=== PATIENT | female | born 1985 | race Caucasian/White ===

== ENCOUNTER 2017-11-21 10:12 | Emergency (ER) | payer SELFPAY ==
[~2017-11-21] VITALS: Ht 165.1 cm; Wt 70.3 kg
[~2017-11-21 10:12] MED LIST: METF500T; PROG100C15 PO
--- NOTE | 2017-11-21 11:00 | NUR ---
PT AMBULATORY TO ER BED 10. C/O SUBSTERNAL CP W/ NAUSEA AND VOMITING. DENIES COUGH AND CONGESTION. GOWNED AND PLACED ON MONITOR. AWAITING MD HERNANDEZ.
--- NOTE | 2017-11-21 11:20 | NUR ---
ODALIS COOK RESTAURANT AT BEDSIDE FOR EVAL.
[2017-11-21] MEDS ORDERED: MORPHINE SULFATE INJ 2 MG/ML DISP.SYRIN IV ONE ×2 (11:30→13:00)
[2017-11-21] MEDS ORDERED: NITROGLYCERIN 0.4 MG/TAB BOTTLE SL ONE (11:30)
[2017-11-21] MEDS ORDERED: IV NS 0.9% 1,000 ML BAG IV ONE (11:30)
[2017-11-21] MEDS ORDERED: ONDANSETRON HCL/PF 4 MG/2 ML VIAL IVP ONE (11:30)
--- NOTE | 2017-11-21 11:35 | NUR ---
IV LINE STARTED BLOOD DRAWN AND SENT TO LAB.
[2017-11-21 11:39] LABS: BASOPHILS # (AUTO) 0.1 /CMM (0.0-0.2); BASOPHILS % (AUTO) 0.5 % (0.0-2.0); EOSINOPHILS % (AUTO) 0.2 % (0.0-6.0); HEMATOCRIT 45 % (33-45); HEMOGLOBIN 15.9 g/dL (11.5-14.8); LYMPHOCYTES # (AUTO) 1.1 /CMM (0.8-4.8); LYMPHOCYTES % (AUTO) 9.1 % (20.0-44.0); MEAN CORPUSCULAR HEMOGLOBIN 32 PG (26.0-33.0); MEAN CORPUSCULAR HGB CONC 35 g/dl (31.0-36.0); MEAN CORPUSCULAR VOLUME 91 fL (82-100); MONOCYTES # (AUTO) 0.5 /CMM (0.1-1.30); MONOCYTES % (AUTO) 3.7 % (2.0-12.0); NEUTROPHILS # (AUTO) 10.9 /CMM (1.8-8.9); NEUTROPHILS % (AUTO) 86.5 % (43.0-81.0); PLATELET COUNT (AUTO) 240 /CMM (150-450); WHITE BLOOD COUNT (AUTO) 12.6 K/uL (4.3-11.0)
[2017-11-21] MEDS ORDERED: ASPIRIN 325 MG TABLET ONE (11:45)
[2017-11-21] MEDS ORDERED: MORPHINE SULFATE INJ 4 MG/ML DISP.SYRIN ONE ×2 (11:45→12:50)
[2017-11-21] MEDS ORDERED: ONDANSETRON HCL/PF 4 MG/2 ML VIAL ONE ×2 (11:45→14:59)
[2017-11-21] MEDS ORDERED: NITROGLYCERIN 0.4 MG/TAB BOTTLE ONE (11:45)
[2017-11-21] MEDS: ASPIRIN 325 MG TABLET PO ONE ×2 (11:51→12:53)
[2017-11-21 11:52] LABS: CALCIUM, SERUM 9.3 mg/dL (8.5-10.1); CARBON DIOXIDE 23 mmol/L (21-32); CHLORIDE 104 mmol/L (98-107); CREATININE 0.9 mg/dL (0.6-1.3); GLUCOSE 150 mg/dL (74-106); POTASSIUM 4.5 mmol/L (3.5-5.1); SODIUM SERUM 138 mmol/L (136-145); UREA NITROGEN, BLOOD 15 mg/dL (7-18)
[2017-11-21 11:56] LABS: INR 0.95 (0.87-1.13); PROTHROMBIN TIME 9.9 SECS (9.5-12.7)
[2017-11-21 12:02] LABS: TROPONIN I < 0.017 ng/mL (0.00-0.056)
[2017-11-21] MEDS ORDERED: METOCLOPRAMIDE HCL 10 MG/2 ML VIAL ONE (12:26)
--- NOTE | 2017-11-21 12:31 | NUR ---
PT IS STILL NAUSEATED. UNABLE TO TAKE THE ASPIRIN. SREEII CERTIFIED TEACHER ASSISTANT AWARE. REGLAN 10MG IV GIVEN PER ORDERED.
[2017-11-21] MEDS ORDERED: METOCLOPRAMIDE HCL 10 MG/2 ML VIAL IV ONE (13:00)
[2017-11-21] MEDS ORDERED: ONDANSETRON HCL/PF 4 MG/2 ML VIAL IV ONE (15:00)
[2017-11-21 15:04] VITALS: BP 127/94
--- NOTE | 2017-11-21 15:04 | NUR ---
IV removed. Catheter intact and site benign. Pressure and 4x4 applied to site. No bleeding noted.
--- NOTE | 2017-11-21 15:05 | NUR ---
Patient discharged to home in stable condition. Written and verbal after care instructions given. Patient verbalizes understanding of instruction.
== END 2017-11-21 15:12 | disposition home or self-care (01) ==
LOC: ER 10:13
DX: R11.2 Nausea with vomiting, unspecified (principal); R07.89 Other chest pain; R10.9 Unspecified abdominal pain; R06.02 Shortness of breath; E11.9 Type 2 diabetes mellitus without complications; Z79.84 Long term (current) use of oral hypoglycemic drugs
CPT/HCPCS: 36415; 71045; 76705; 80048; 83690; 84484; 85025; 85730; 93005; 96374; 96375; 96376; 99285; A4606; J2270 ×2; J2405 ×2; J2765; Z7610

== ENCOUNTER 2017-11-21 22:33 | Emergency (ER) | payer OTHER ==
[~2017-11-21] VITALS: Ht 162.6 cm; Wt 64.9 kg
[2017-11-21 22:50] VITALS: BP 146/87
--- NOTE | 2017-11-22 00:09 | NUR ---
INFORMED BY SECURITY "PT LEFT"
== END 2017-11-22 00:11 | disposition left against medical advice (07) ==
LOC: ER 22:37
DX: Z53.21 Procedure and treatment not carried out due to patient leaving prior to being seen by health care provider (principal)
CPT/HCPCS: A4606; Z7610

== ENCOUNTER 2018-08-28 07:35 | Emergency (ER) | payer OTHER ==
[~2018-08-28] VITALS: Ht 162.6 cm; Wt 67.1 kg
[2018-08-28] MEDS ORDERED: MORPHINE SULFATE INJ 2 MG/ML DISP.SYRIN ONE (07:49)
[2018-08-28] MEDS ORDERED: ONDANSETRON HCL/PF 4 MG/2 ML VIAL ONE ×3 (07:49→15:07)
[2018-08-28] MEDS ORDERED: ONDANSETRON HCL/PF 4 MG/2 ML VIAL IVP ONE (08:00)
[2018-08-28] MEDS ORDERED: IV NS 0.9% 1,000 ML BAG IV ONE ×2 (08:00→09:30)
[2018-08-28] MEDS ORDERED: MORPHINE SULFATE INJ 2 MG/ML DISP.SYRIN IV ONE ×2 (08:00→11:00)
[2018-08-28 08:02] LABS: EOSINOPHILS % (AUTO) 0.3 % (0.0-6.0); HEMATOCRIT 46 % (33-45); HEMOGLOBIN 15.6 g/dL (11.5-14.8); LYMPHOCYTES # (AUTO) 0.6 /CMM (0.8-4.8); MEAN CORPUSCULAR HGB CONC 34 g/dl (31.0-36.0); MEAN CORPUSCULAR VOLUME 94 fL (82-100); MONOCYTES # (AUTO) 0.3 /CMM (0.1-1.30); NEUTROPHILS # (AUTO) 11.6 /CMM (1.8-8.9); NEUTROPHILS % (AUTO) 92.7 % (43.0-81.0); PLATELET COUNT (AUTO) 245 /CMM (150-450); RDW COEFFICIENT OF VARIATION 12.9 (11.5-15.0); RED BLOOD CELL COUNT(AUTO) 4.93 MIL/uL (4.0-5.2); WHITE BLOOD COUNT (AUTO) 12.6 K/uL (4.3-11.0)
--- NOTE | 2018-08-28 08:02 | NUR ---
33 Y/O FEMALE PLACED IN BED 10 C/O ABDOMINAL PAIN WITH NAUSEA AND VOMITING. PT SEEN BY MD. H/L 20 G PLACED LEFT A/C. BLOOD OBTAINED AND SENT. MORPHINE 2MG AND ZOFRAN 4MG IV GIVEN. IVF OF N/S RUNNING. CONTINUE TO MONITOR
--- NOTE | 2018-08-28 08:11 | NUR ---
PAIN RESOLVED. BP NOW 124/73
[2018-08-28 08:20] LABS: ALBUMIN 4.2 g/dL (3.4-5.0); BILIRUBIN,DIRECT 0.1 mg/dL (0.0-0.2); BILIRUBIN,TOTAL 0.6 mg/dL (0.2-1.0); CALCIUM, SERUM 9.9 mg/dL (8.5-10.1); POTASSIUM 4.4 mmol/L (3.5-5.1); TOTAL PROTEIN, SERUM 8.4 g/dL (6.4-8.2)
[2018-08-28] MEDS ORDERED: LORAZEPAM INJ 2 MG/ML VIAL ONE ×2 (08:29→15:09)
[2018-08-28] MEDS ORDERED: ONDANSETRON HCL/PF - ER 4 MG/2 ML VIAL IV ONE (08:30)
[2018-08-28] MEDS ORDERED: LORAZEPAM INJ 2 MG/ML VIAL IV ONE ×2 (08:30→15:00)
--- NOTE | 2018-08-28 08:34 | NUR ---
PT C/O ABDOMINAL PAIN AGAIN WITH N/V/D. VERY LITTLE DIARRHEA. PT CLEANED AND MEDICATED WITH ATIVAN AND ZOFRAN.
[2018-08-28] MEDS ORDERED: diphenhydrAMINE HCL 50 MG/ML VIAL IV ONE (09:30)
[2018-08-28] MEDS ORDERED: ATROPINE SULFATE INJ 0.4 MG/ML VIAL IV ONE (09:30)
[2018-08-28] MEDS ORDERED: ATROPINE SULFATE INJ 1 MG/ML VIAL ONE (09:42)
[2018-08-28] MEDS ORDERED: diphenhydrAMINE HCL 50 MG/ML VIAL ONE (09:43)
--- NOTE | 2018-08-28 10:02 | NUR ---
PT C/O DIARRHEA. PT CLEANED. IVF - N/S - WITH ATROPINE AND BENADRYL - RUNNING
[2018-08-28] MEDS ORDERED: CIPROFLOXACIN IV RTU 400 MG in PREMIX 1 EA IV STA (10:35)
[2018-08-28] MEDS ORDERED: MORPHINE SULFATE INJ 4 MG/ML DISP.SYRIN ONE (10:42)
[2018-08-28] MEDS ORDERED: METOCLOPRAMIDE HCL 10 MG/2 ML VIAL ONE (10:43)
[2018-08-28] MEDS ORDERED: CIPROFLOXACIN IV RTU 200 ML IV ONE (10:44)
--- NOTE | 2018-08-28 10:56 | NUR ---
PT HAVING DIARRHEA AGAIN. PT CLEANED AGAIN. MORPHINE AND REGLAN GIVEN IV. CIPRO RUNNING IV. PT TO BE ADMITTED.
[2018-08-28] MEDS ORDERED: METOCLOPRAMIDE HCL 10 MG/2 ML VIAL IV ONE (11:00)
--- NOTE | 2018-08-28 11:43 | NUR ---
REPORT GIVEN TO [facility]. PT TO BE TRANSFERRED TO [facility] TO DR. MEI'S SERVICE.
--- NOTE | 2018-08-28 12:21 | NUR ---
CALLED YANETH AT [facility], SHE WILL GIVE US A CALL ONCE WE HAVE BED PLACEMENT.
--- NOTE | 2018-08-28 13:29 | NUR ---
YANETH CALLED FROM [facility] ROOM 319-2 NURSE [facility] ETA 1500
--- NOTE | 2018-08-28 13:51 | NUR ---
PT CLEANED AGAIN. PT C/O PAIN AND NAUSEA AGAIN.
[2018-08-28] MEDS ORDERED: ONDANSETRON HCL/PF 4 MG/2 ML VIAL IV ONE (15:00)
--- NOTE | 2018-08-28 15:14 | NUR ---
PT C/O NAUSEA AND DIARRHEA. PT MEDICATED FOR SAME.
[2018-08-28 16:27] VITALS: BP 133/86
--- NOTE | 2018-08-28 16:36 | NUR ---
ETA FOR AMBULANCE IV RN IS 20 MINUTES. CALLING REPORT TO [facility] FOR PT. [facility] NURSE SAYS ROOM NOT READY YET.
--- NOTE | 2018-08-28 16:43 | NUR ---
REPORT GIVEN TO JASVIR. WAITING FOR AMBULACE ARRIVAL
--- NOTE | 2018-08-28 17:15 | NUR ---
AMBULANCE ARRIVES AND PT TRANSFERRED TO [facility].
== END 2018-08-28 17:19 ==
LOC: ER 07:36
DX: R11.2 Nausea with vomiting, unspecified (principal); R19.7 Diarrhea, unspecified; D72.829 Elevated white blood cell count, unspecified; R10.9 Unspecified abdominal pain; E11.9 Type 2 diabetes mellitus without complications
CPT/HCPCS: 36415; 80048; 80076; 83690; 84702; 85025; 96361; 96374; 96375; 96376; 99285; A4216; J0461 ×2; J0744 ×2; J1200; J2060 ×2; J2270 ×2; J2405 ×4; J2765; J7030; A4606; Z7610

== ENCOUNTER 2020-08-12 12:26 | Emergency (ER) | payer OTHER ==
[~2020-08-12] VITALS: Ht 162.6 cm; Wt 84.4 kg
[2020-08-12 13:04] VITALS: BP 115/54
--- NOTE | 2020-08-12 13:20 | NUR ---
SUTURE KIT SET UP.
[2020-08-12] MEDS ORDERED: LIDOCAINE HCL/MPF 1% 30 ML VIAL IJ ONE (13:26)
[2020-08-12] MEDS ORDERED: HYDROCODONE/APAP 5/325MG TABLET ONE (13:53)
[2020-08-12] MEDS ORDERED: TDAP [DIPH/PERTUSSIS/TET] 0.5 ML VIAL IM ONE (13:54)
[2020-08-12] MEDS: HYDROCODONE/APAP 5/325MG TABLET PO ONE (13:56)
[2020-08-12] MEDS: TDAP [DIPH/PERTUSSIS/TET] 0.5 ML VIAL IM ONE (13:57)
== END 2020-08-12 14:14 | disposition home or self-care (01) ==
LOC: ER 12:30
DX: S61.213A Laceration without foreign body of left middle finger without damage to nail, initial encounter (principal); E11.9 Type 2 diabetes mellitus without complications; Z79.84 Long term (current) use of oral hypoglycemic drugs; Z79.899 Other long term (current) drug therapy; W26.0XXA Contact with knife, initial encounter; Y93.E8 Activity, other personal hygiene; Y92.89 Other specified places as the place of occurrence of the external cause; Y99.8 Other external cause status
CPT/HCPCS: 12002; 99283; A6403; J3490; 90715

== ENCOUNTER 2022-04-18 20:24 | Emergency (ER) | payer OTHER ==
[~2022-04-18] VITALS: Ht 162.6 cm; Wt 86.2 kg
--- NOTE | 2022-04-18 20:55 | NUR ---
[id number] C/O R FLANK PAIN SINCE THE AM. PLACED PATIENT COMFORTABLY IN BED. VITALS CHECKED.
[2022-04-18] MEDS ORDERED: KETOROLAC TROMETHAMINE INJ 30 MG/ML VIAL IV ONE ×2 (21:00→23:00)
[2022-04-18] MEDS ORDERED: IV NS 0.9% 1,000 ML BAG IV ONE (21:00)
[2022-04-18] MEDS ORDERED: ONDANSETRON HCL/PF 4 MG/2 ML VIAL IVP ONE (21:00)
[2022-04-18] MEDS ORDERED: MORPHINE SULFATE INJ 2 MG/ML DISP.SYRIN IV ONE (21:00)
--- NOTE | 2022-04-18 21:00 | NUR ---
IV CANNULA G20 INSERTED ON RIGHT AC. BLOOD DRAWN AND SENT TO LAB
[2022-04-18] MEDS ORDERED: KETOROLAC TROMETHAMINE INJ 30 MG/ML VIAL ONE (21:10)
[2022-04-18] MEDS ORDERED: MORPHINE SULFATE INJ 4 MG/ML DISP.SYRIN ONE (21:10)
[2022-04-18] MEDS ORDERED: ONDANSETRON HCL/PF 4 MG/2 ML VIAL ONE (21:10)
--- NOTE | 2022-04-18 21:20 | NUR ---
URINE SPECIMEN SENT TO LAB
[2022-04-18 21:22] LABS: BASOPHILS % (AUTO) 0.3 % (0.0-2.0); EOSINOPHILS % (AUTO) 1.2 % (0.0-6.0); HEMATOCRIT 41 % (33-45); HEMOGLOBIN 13.8 g/dL (11.5-14.8); LYMPHOCYTES # (AUTO) 1.8 K/uL (0.8-4.8); MEAN CORPUSCULAR HGB CONC 34 g/dl (31.0-36.0); MEAN CORPUSCULAR VOLUME 90 fL (82-100); MONOCYTES # (AUTO) 0.4 K/uL (0.1-1.30); MONOCYTES % (AUTO) 5.7 % (2.0-12.0); NEUTROPHILS # (AUTO) 4.2 K/uL (1.8-8.9); NEUTROPHILS % (AUTO) 64.8 % (43.0-81.0); PLATELET COUNT (AUTO) 257 K/uL (150-450); RED BLOOD CELL COUNT(AUTO) 4.56 MIL/uL (4.0-5.2); WHITE BLOOD COUNT (AUTO) 6.4 K/uL (4.3-11.0)
[2022-04-18 21:46] LABS: BILIRUBIN,TOTAL 0.2 mg/dL (0.2-1.0); CALCIUM, SERUM 9.3 mg/dL (8.5-10.1); CREATININE 0.7 mg/dL (0.6-1.3); TOTAL PROTEIN, SERUM 7.5 g/dL (6.4-8.2)
--- NOTE | 2022-04-18 22:40 | NUR ---
PATIENT STILL COMPLAINING OF FLANK PAIN. 06/26. [employer] SECURITY CONSULTANT CATH MADE AWARE
[2022-04-18 22:41] LABS: ALBUMIN 3.7 g/dL (3.4-5.0)
[2022-04-18 22:51] LABS: BILIRUBIN,URINE NEGATIVE (NEGATIVE); COLOR,URINE YELLOW (YELLOW); LEUKOCYTE ESTERASE ,URINE SMALL (NEGATIVE); NITRITE, URINE NEGATIVE (NEGATIVE); PH,URINE 6.5 (5.0-8.0); PROTEIN,URINE NEGATIVE (NEGATIVE); UGLUCOSE NEGATIVE (NEGATIVE); UROBILINOGEN,URINE 0.2 EU/dL (0.2)
[2022-04-18] MEDS ORDERED: HYDROMORPHONE 1 MG/1 ML DISP.SYRIN IV ONE (23:00)
[2022-04-18] MEDS ORDERED: KETOROLAC TROMETHAMINE 15 MG/ML VIAL ONE (23:14)
[2022-04-18] MEDS ORDERED: HYDROMORPHONE 1 MG/1 ML DISP.SYRIN ONE (23:15)
[2022-04-19] MEDS ORDERED: HYDR-4209 PO (00:11)
[2022-04-19] MEDS ORDERED: IBUP-1955 PO (00:11)
--- NOTE | 2022-04-19 00:22 | NUR ---
Patient discharged to home in stable condition. Written and verbal after care instructions given. Patient verbalizes understanding of instruction. IV removed. Catheter intact and site benign. Pressure and 4x4 applied to site. No bleeding noted. PT ambulatory with a steady gait
[2022-04-19 00:26] VITALS: BP 138/85
[2022-04-19 06:58] LABS: BACTERIA,URINE Moderate /HPF (None Seen); SQUAMOUS EPITHELIAL CELL,UR Few /HPF (None Seen)
[2022-04-19] MEDS ORDERED: HYDR-4275 PO (10:45)
== END 2022-04-19 00:26 | disposition home or self-care (01) ==
LOC: ER 20:31
DX: N20.0 Calculus of kidney (principal); K44.9 Diaphragmatic hernia without obstruction or gangrene; K57.30 Diverticulosis of large intestine without perforation or abscess without bleeding; K76.0 Fatty (change of) liver, not elsewhere classified; Z60.2 Problems related to living alone; Z79.899 Other long term (current) drug therapy
CPT/HCPCS: 36415; 74176; 80048; 80076; 81001; 83690; 84703; 85025; 87077; 87086; 87186; 96361; 96374; 96375; 96376; 99284; J1170; J1885 ×2; J2270; J2405; J7030

== ENCOUNTER 2022-05-11 19:09 | Emergency (ER) | payer OTHER ==
[~2022-05-11] VITALS: Ht 162.6 cm; Wt 98.4 kg
[~2022-05-11 19:09] MED LIST changes: +HYDR-4209 PO; +HYDR-4275 PO; +IBUP-1955 PO
[2022-05-11] MEDS ORDERED: VANCOMYCIN 1 GM in IV D5W 250 ML IV ONE (19:30)
[2022-05-11] MEDS ORDERED: PIPERACILLIN /TAZOBACTAM 3.375 G in IV D5W 50 ML IV ONE (19:30)
[2022-05-11] MEDS ORDERED: ACETAMINOPHEN 325 MG TABLET PO ONE (19:30)
[2022-05-11] MEDS ORDERED: PIPERACILLIN /TAZOBACTAM 3.375 G VIAL IV ONE (19:59)
[2022-05-11] MEDS ORDERED: VANCOMYCIN 1 GM VIAL ONE (19:59)
[2022-05-11] MEDS ORDERED: ONDANSETRON HCL/PF 4 MG/2 ML VIAL ONE (19:59)
[2022-05-11] MEDS ORDERED: ONDANSETRON HCL/PF 4 MG/2 ML VIAL IV ONE (20:00)
[2022-05-11] MEDS ORDERED: ACETAMINOPHEN ES 500 MG TABLET ONE (20:00)
[2022-05-11 20:13] LABS: BASOPHILS % (AUTO) 0.2 % (0.0-2.0); EOSINOPHILS % (AUTO) 1.2 % (0.0-6.0); HEMATOCRIT 37 % (33-45); HEMOGLOBIN 12.4 g/dL (11.5-14.8); LYMPHOCYTES # (AUTO) 0.6 K/uL (0.8-4.8); LYMPHOCYTES % (AUTO) 11.4 % (20.0-44.0); MEAN CORPUSCULAR HGB CONC 34 g/dl (31.0-36.0); MEAN CORPUSCULAR VOLUME 89 fL (82-100); MONOCYTES # (AUTO) 0.4 K/uL (0.1-1.30); NEUTROPHILS # (AUTO) 4.4 K/uL (1.8-8.9); NEUTROPHILS % (AUTO) 79.2 % (43.0-81.0); PLATELET COUNT (AUTO) 219 K/uL (150-450); RED BLOOD CELL COUNT(AUTO) 4.09 MIL/uL (4.0-5.2); WHITE BLOOD COUNT (AUTO) 5.5 K/uL (4.3-11.0)
[2022-05-11] MEDS ORDERED: MORPHINE SULFATE INJ 4 MG/ML DISP.SYRIN ONE (20:27)
[2022-05-11] MEDS ORDERED: CT SWABBABLE VALVE TRANS SET 1 EA INFUS.SET MC ONE (20:30)
[2022-05-11] MEDS ORDERED: MORPHINE SULFATE INJ 2 MG/ML DISP.SYRIN IV ONE (20:30)
[2022-05-11] MEDS ORDERED: IOHEXOL-300 100 ML VIAL IV ONE (20:30)
[2022-05-11] MEDS ORDERED: IV NS 0.9% 250 ML IV ONE (20:31)
[2022-05-11 20:44] LABS: ALANINE AMINOTRANSFERASE 135 U/L (12-78); ALBUMIN 3.5 g/dL (3.4-5.0); ALKALINE PHOSPHATASE 89 U/L (46-116); ASPARTATE AMINOTRANSFERASE 65 U/L (15-37); BILIRUBIN,TOTAL 0.3 mg/dL (0.2-1.0); CALCIUM, SERUM 8.4 mg/dL (8.5-10.1); CARBON DIOXIDE 26 mmol/L (21-32); CHLORIDE 101 mmol/L (98-107); CREATININE 0.8 mg/dL (0.6-1.3); GLUCOSE 99 mg/dL (74-106); SODIUM SERUM 134 mmol/L (136-145); TOTAL PROTEIN, SERUM 7.3 g/dL (6.4-8.2); UREA NITROGEN, BLOOD 9 mg/dL (7-18)
[2022-05-11 22:30] LABS: BILIRUBIN,URINE NEGATIVE (NEGATIVE); COLOR,URINE YELLOW (YELLOW); LEUKOCYTE ESTERASE ,URINE NEGATIVE (NEGATIVE); NITRITE, URINE NEGATIVE (NEGATIVE); PH,URINE 5.5 (5.0-8.0); PROTEIN,URINE NEGATIVE (NEGATIVE); UGLUCOSE NEGATIVE (NEGATIVE); UROBILINOGEN,URINE 0.2 EU/dL (0.2)
[2022-05-11] MEDS ORDERED: HYDROMORPHONE 1 MG/1 ML DISP.SYRIN ONE (22:41)
[2022-05-11] MEDS ORDERED: HYDROMORPHONE 1 MG/1 ML DISP.SYRIN IV ONE (23:00)
[2022-05-12 00:59] VITALS: BP 117/67
== END 2022-05-12 01:00 | disposition left against medical advice (07) ==
LOC: ER 19:10
DX: R50.82 Postprocedural fever (principal); E11.9 Type 2 diabetes mellitus without complications; Z79.84 Long term (current) use of oral hypoglycemic drugs; R00.0 Tachycardia, unspecified; Z20.822 Contact with and (suspected) exposure to COVID-19
CPT/HCPCS: 36415; 70450; 70487; 71045; 80048; 80076; 81003; 83605; 84145; 84484; 84702; 85025; 85730; 87040 ×2; 87081; 87086; 87426; 93005; 96365; 96367; 96375; 99285; C9803; J1170; J2270; J2405; J2543; J3370; J7050; J7060; Q9967

== ENCOUNTER 2023-09-16 09:32 | Emergency (ER) | payer OTHER ==
[~2023-09-16] VITALS: Ht 162.6 cm; Wt 73.5 kg
[2023-09-16] MEDS ORDERED: ONDANSETRON HCL/PF 4 MG/2 ML VIAL IVP ONE (10:00)
[2023-09-16] MEDS ORDERED: IV NS 0.9% 1,000 ML BAG IV ONE (10:00)
[2023-09-16] MEDS ORDERED: ACETAMINOPHEN ES 500 MG TABLET PO ONE (10:00)
[2023-09-16] MEDS ORDERED: ONDANSETRON HCL/PF 4 MG/2 ML VIAL ONE ×3 (10:09→13:10)
[2023-09-16] MEDS ORDERED: ACETAMINOPHEN ES 500 MG TABLET ONE (10:09)
[2023-09-16] MEDS ORDERED: MORPHINE SULFATE INJ 2 MG/ML DISP.SYRIN IV ONE (10:30)
[2023-09-16] MEDS ORDERED: MORPHINE SULFATE INJ 4 MG/ML DISP.SYRIN ONE (10:30)
[2023-09-16 10:39] LABS: BASOPHILS % (AUTO) 0.3 % (0.0-2.0); CALCIUM, SERUM 8.9 mg/dL (8.5-10.1); CREATININE 0.7 mg/dL (0.6-1.3); EOSINOPHILS % (AUTO) 0.1 % (0.0-6.0); HEMATOCRIT 46 % (33-45); LYMPHOCYTES # (AUTO) 1.2 K/uL (0.8-4.8); LYMPHOCYTES % (AUTO) 11.6 % (20.0-44.0); MEAN CORPUSCULAR HEMOGLOBIN 31 PG (26.0-33.0); MEAN CORPUSCULAR HGB CONC 35 g/dl (31.0-36.0); MEAN CORPUSCULAR VOLUME 89 fL (82-100); MONOCYTES # (AUTO) 0.7 K/uL (0.1-1.30); MONOCYTES % (AUTO) 6.8 % (2.0-12.0); NEUTROPHILS # (AUTO) 8.1 K/uL (1.8-8.9); NEUTROPHILS % (AUTO) 81.2 % (43.0-81.0); PLATELET COUNT (AUTO) 258 K/uL (150-450); POTASSIUM 3.1 mmol/L (3.5-5.1); RED BLOOD CELL COUNT(AUTO) 5.16 MIL/uL (4.0-5.2); RED CELL DISTRIBUTION WIDTH 12.3 % (11.5-15.0)
[2023-09-16 10:42] LABS: ALBUMIN 4.1 g/dL (3.4-5.0); BILIRUBIN,DIRECT 0.2 mg/dL (0.0-0.2); BILIRUBIN,TOTAL 0.7 mg/dL (0.2-1.0); TOTAL PROTEIN, SERUM 8.1 g/dL (6.4-8.2)
[2023-09-16 10:49] LABS: APPEARANCE,URINE CLOUDY (CLEAR); BILIRUBIN,URINE NEGATIVE (NEGATIVE); BLOOD, URINE 3+ Ery/uL (NEGATIVE); COLOR,URINE YELLOW (YELLOW); KETONES,URINE TRACE mg/dL (NEGATIVE); LEUKOCYTE ESTERASE ,URINE TRACE (NEGATIVE); NITRITE, URINE NEGATIVE (NEGATIVE); PROTEIN,URINE 2+ mg/dl (NEGATIVE); UGLUCOSE NEGATIVE (NEGATIVE); UROBILINOGEN,URINE 0.2 EU/dL (0.2)
[2023-09-16 10:52] LABS: PREGNANCY TEST URINE QUAL NEGATIVE (NEGATIVE)
[2023-09-16 11:00] LABS: ADD URINE CULTURE YES; BACTERIA,URINE Many /HPF (None Seen); MUCUS,URINE Moderate /LPF (None Seen); RBC,URINE 21-50 /HPF (0-2); SQUAMOUS EPITHELIAL CELL,UR Many /HPF (None Seen)
[2023-09-16] MEDS ORDERED: ONDANSETRON HCL/PF - ER 4 MG/2 ML VIAL IV ONE ×2 (12:00→13:00)
[2023-09-16] MEDS ORDERED: POTASSIUM CHLORIDE 20 MEQ TAB.PRT.SR PO ONE ×2 (12:30→12:34)
[2023-09-16] MEDS ORDERED: NITR100C6 PO ×2 (12:49→12:50)
[2023-09-16] MEDS ORDERED: ONDA4TAB11 PO ×2 (12:49→12:50)
[2023-09-16] MEDS ORDERED: KETOROLAC TROMETHAMINE INJ 30 MG/ML VIAL IV ONE (13:00)
[2023-09-16] MEDS ORDERED: MAG HYDROX/AL HYDROX/SIMETH 30 ML UDC PO ONE (13:00)
[2023-09-16] MEDS ORDERED: KETOROLAC TROMETHAMINE 15 MG/ML VIAL ONE (13:10)
[2023-09-16] MEDS ORDERED: MAG HYDROX/AL HYDROX/SIMETH 30 ML UDC ONE (13:10)
[2023-09-16 13:37] VITALS: BP 125/80; TEMP 98; O2SAT 98
== END 2023-09-16 13:36 | disposition home or self-care (01) ==
LOC: ER 09:35
DX: N39.0 Urinary tract infection, site not specified (principal); R11.2 Nausea with vomiting, unspecified; E11.9 Type 2 diabetes mellitus without complications; Z79.899 Other long term (current) drug therapy; Z20.822 Contact with and (suspected) exposure to COVID-19; Z60.2 Problems related to living alone
CPT/HCPCS: 99284; 96374; 71045; 96375; 96361; 87426; 87804 ×2; 96376; 85025; 80048; 87086; 83690; 80076; 84703; 81001; 36415; J2270; J2405 ×5; J1885; C9803

== ENCOUNTER 2023-10-04 07:22 | Inpatient (IN) | payer OTHER ==
[~2023-10-04] VITALS: Ht 162.6 cm; Wt 80.7 kg
[~2023-10-04 07:22] MED LIST changes: +NITR100C6 PO; +ONDA4TAB11 PO
[2023-10-04] MEDS ORDERED: ONDANSETRON HCL/PF 4 MG/2 ML VIAL ONE (07:34)
[2023-10-04] MEDS ORDERED: KETOROLAC TROMETHAMINE INJ 30 MG/ML VIAL ONE (07:39)
[2023-10-04 07:53] VITALS: O2SAT 100
[2023-10-04 07:54] LABS: BASOPHILS % (AUTO) 0.5 % (0.0-2.0); EOSINOPHILS % (AUTO) 0.2 % (0.0-6.0); HEMATOCRIT 46 % (33-45); HEMOGLOBIN 15.6 g/dL (11.5-14.8); LYMPHOCYTES # (AUTO) 1.7 K/uL (0.8-4.8); LYMPHOCYTES % (AUTO) 21.6 % (20.0-44.0); MEAN CORPUSCULAR HEMOGLOBIN 31 PG (26.0-33.0); MEAN CORPUSCULAR HGB CONC 34 g/dl (31.0-36.0); MEAN CORPUSCULAR VOLUME 91 fL (82-100); MONOCYTES # (AUTO) 0.3 K/uL (0.1-1.30); MONOCYTES % (AUTO) 4.1 % (2.0-12.0); NEUTROPHILS # (AUTO) 5.6 K/uL (1.8-8.9); NEUTROPHILS % (AUTO) 73.6 % (43.0-81.0); PLATELET COUNT (AUTO) 316 K/uL (150-450); RED BLOOD CELL COUNT(AUTO) 5.08 MIL/uL (4.0-5.2); RED CELL DISTRIBUTION WIDTH 12.8 % (11.5-15.0); WHITE BLOOD COUNT (AUTO) 7.6 K/uL (4.3-11.0)
[2023-10-04] MEDS ORDERED: HALOPERIDOL LACTATE INJ 5 MG/ML VIAL ONE (07:55)
[2023-10-04] MEDS ORDERED: ONDANSETRON HCL/PF 4 MG/2 ML VIAL IV ONE (08:00)
[2023-10-04] MEDS ORDERED: KETOROLAC TROMETHAMINE INJ 30 MG/ML VIAL IV ONE (08:00)
[2023-10-04] MEDS ORDERED: IV NS 0.9% 1,000 ML BAG IV ONE (08:00)
[2023-10-04] MEDS ORDERED: HALOPERIDOL LACTATE INJ 5 MG/ML VIAL IV ONE (08:00)
[2023-10-04 08:18] LABS: BILIRUBIN,DIRECT 0.1 mg/dL (0.0-0.2); BILIRUBIN,TOTAL 0.4 mg/dL (0.2-1.0); CALCIUM, SERUM 9.6 mg/dL (8.5-10.1); POTASSIUM 4.4 mmol/L (3.5-5.1); TOTAL PROTEIN, SERUM 8.2 g/dL (6.4-8.2)
[2023-10-04] MEDS ORDERED: MORPHINE SULFATE INJ 2 MG/ML DISP.SYRIN ONE ×2 (09:06→09:52)
[2023-10-04] MEDS ORDERED: MORPHINE SULFATE INJ 2 MG/ML DISP.SYRIN IV ONE ×2 (09:30→10:00)
[2023-10-04 10:15] LABS: APPEARANCE,URINE SLIGHTLY CLOUDY (CLEAR); BILIRUBIN,URINE NEGATIVE (NEGATIVE); BLOOD, URINE TRACE-INTA Ery/uL (NEGATIVE); COLOR,URINE DARK YELLOW (YELLOW); KETONES,URINE 1+ mg/dL (NEGATIVE); LEUKOCYTE ESTERASE ,URINE 3+ (NEGATIVE); NITRITE, URINE POSITIVE (NEGATIVE); PH,URINE 5.5 (5.0-8.0); PROTEIN,URINE TRACE mg/dl (NEGATIVE); UGLUCOSE NEGATIVE (NEGATIVE); UROBILINOGEN,URINE 0.2 EU/dL (0.2)
[2023-10-04 10:16] LABS: PREGNANCY TEST URINE QUAL NEGATIVE (NEGATIVE)
[2023-10-04 10:17] LABS: ADD URINE CULTURE YES; BACTERIA,URINE Many /HPF (None Seen); SQUAMOUS EPITHELIAL CELL,UR Few /HPF (None Seen); WBC,URINE TOO NUMEROUS TO COUN /HPF (0-3)
[2023-10-04] MEDS ORDERED: CEFTRIAXONE 1GM BAG (ER ONLY) 1 GM/50 ML PIGGYBACK IV ONE (11:00)
[2023-10-04] MEDS ORDERED: CEFTRIAXONE 1GM BAG (ER ONLY) 50 ML IV ONE (12:19)
[2023-10-04] MEDS: ONDANSETRON HCL/PF 4 MG/2 ML VIAL IV PRN ×4 (13:37→21:36)
[2023-10-04] MEDS: HYDROMORPHONE INJ 2 MG/ML DISP.SYRIN IV PRN ×3 (13:37→21:46)
[2023-10-04 14:00] VITALS: BP 139/88; TEMP 97.5; O2SAT 98
[2023-10-04] MEDS ORDERED: HYDROCODONE/APAP 5/325MG TABLET PO PRN (14:30)
[2023-10-04] MEDS ORDERED: IV D5 LR 1,000 ML IV ONE ×2 (14:30)
[2023-10-04] MEDS ORDERED: ACETAMINOPHEN 650 MG/20.3 ML UDC NG PRN (14:30)
[2023-10-04] MEDS ORDERED: ZOLPIDEM TARTRATE 5 MG TABLET PO PRN (14:30)
[2023-10-04] MEDS: PIPERACILLIN /TAZOBACTAM 3.375 G in IV D5W 100 ML IV SCH ×2 (15:49→23:52)
[2023-10-04] MEDS: PANTOPRAZOLE 40 MG TABLET.DR PO SCH (15:57)
[2023-10-04] MEDS ORDERED: ENOXAPARIN SODIUM 40 MG/0.4 ML DISP.SYRIN SQ SCH (16:00)
[2023-10-04 16:08] VITALS: BP 122/71; TEMP 97.6; O2SAT 97
[2023-10-04 16:43] LABS: AMYLASE 95 U/L (25-115); LIPASE 51 U/L (16-77)
[2023-10-04 16:47] LABS: CHOLESTEROL 267 mg/dL (<200); HDL CHOLESTEROL 53 mg/dL (40-60); LDL 168 mg/dL (0-99); TRIGLYCERIDES 136 mg/dL (30-150)
[2023-10-04] MEDS ORDERED: PIPERACILLIN /TAZOBACTAM 3.375 G in IV D5W 50 ML IV SCH (18:00)
[2023-10-04 20:00] VITALS: BP 115/87; TEMP 97.9; O2SAT 94
[2023-10-05] MEDS: HYDROMORPHONE INJ 2 MG/ML DISP.SYRIN IV PRN ×3 (01:45→09:52)
[2023-10-05] MEDS: ONDANSETRON HCL/PF 4 MG/2 ML VIAL IV PRN ×2 (01:45→09:53)
[2023-10-05] MEDS: diphenhydrAMINE HCL 50 MG/ML VIAL IV PRN ×2 (05:05→11:12)
[2023-10-05] MEDS ORDERED: MEROPENEM 1 G in IV NS 0.9% 100 ML IV ONE (05:30)
[2023-10-05] MEDS ORDERED: MEROPENEM 1 G VIAL IV ONE (05:56)
[2023-10-05] MEDS ORDERED: methylPREDNISolone SOD SUCC 40 MG/ML VIAL IV SCH (06:00)
[2023-10-05 07:03] LABS: ALBUMIN 3.3 g/dL (3.4-5.0); BASOPHILS % (AUTO) 0.3 % (0.0-2.0); BILIRUBIN,TOTAL 0.8 mg/dL (0.2-1.0); CALCIUM, SERUM 8.6 mg/dL (8.5-10.1); CREATININE 0.9 mg/dL (0.6-1.3); EOSINOPHILS % (AUTO) 0.6 % (0.0-6.0); HEMATOCRIT 38 % (33-45); HEMOGLOBIN 12.8 g/dL (11.5-14.8); LYMPHOCYTES % (AUTO) 30.4 % (20.0-44.0); MEAN CORPUSCULAR HEMOGLOBIN 31 PG (26.0-33.0); MEAN CORPUSCULAR HGB CONC 34 g/dl (31.0-36.0); MEAN CORPUSCULAR VOLUME 91 fL (82-100); MONOCYTES # (AUTO) 0.5 K/uL (0.1-1.30); MONOCYTES % (AUTO) 8.1 % (2.0-12.0); NEUTROPHILS % (AUTO) 60.6 % (43.0-81.0); PLATELET COUNT (AUTO) 251 K/uL (150-450); POTASSIUM 3.3 mmol/L (3.5-5.1); RED CELL DISTRIBUTION WIDTH 12.8 % (11.5-15.0); TOTAL PROTEIN, SERUM 6.9 g/dL (6.4-8.2); WHITE BLOOD COUNT (AUTO) 6.6 K/uL (4.3-11.0)
[2023-10-05 07:30] VITALS: BP 97/59; TEMP 98.2; O2SAT 94
[2023-10-05] MEDS: PANTOPRAZOLE 40 MG TABLET.DR PO SCH (08:19)
[2023-10-05] MEDS ORDERED: POTASSIUM CHLORIDE 20 MEQ TAB.PRT.SR PO ONE ×2 (11:00)
[2023-10-05] MEDS ORDERED: CIPR-263 PO (11:02)
[2023-10-05] MEDS ORDERED: PRED5TAB48 PO ×2 (11:02→11:03)
[2023-10-05] MEDS ORDERED: MEROPENEM 1 G in IV NS 0.9% 100 ML IV SCH (13:00)
== END 2023-10-05 13:50 | disposition home or self-care (01) | DRG 463 ==
LOC: ER 07:38 → MED 12:20
PROVIDERS: ADMIT Internal Medicine; ATTEND Internal Medicine
DX: N12 Tubulo-interstitial nephritis, not specified as acute or chronic (principal); K76.0 Fatty (change of) liver, not elsewhere classified; E11.9 Type 2 diabetes mellitus without complications; E66.9 Obesity, unspecified; R74.01 Elevation of levels of liver transaminase levels; Z68.30 Body mass index [BMI] 30.0-30.9, adult; L27.1 Localized skin eruption due to drugs and medicaments taken internally; T36.0X5A Adverse effect of penicillins, initial encounter; Y92.230 Patient room in hospital as the place of occurrence of the external cause; Z88.0 Allergy status to penicillin; N20.0 Calculus of kidney; K44.9 Diaphragmatic hernia without obstruction or gangrene; K57.30 Diverticulosis of large intestine without perforation or abscess without bleeding
CPT/HCPCS: 36415; 76705-TC; 80048-TC; 80053-TC; 80061-TC; 80076-TC; 81001; 82150-TC; 83690-TC; 84703-TC; 85025-TC; 87040-TC; 87086-TC; A4223; G0378; J0696; J1170; J1200; J1630; J1650; J1885; J2185; J2270; J2405; J2543; J2920; J3490; J7030; J7050; J7060

== ENCOUNTER 2024-02-08 14:14 | Emergency (ER) | payer OTHER ==
[~2024-02-08] VITALS: Ht 162.6 cm; Wt 76.2 kg
[~2024-02-08 14:14] MED LIST changes: +CIPR-263 PO; -HYDR-4209 PO; -HYDR-4275 PO; -IBUP-1955 PO; -METF500T; -NITR100C6 PO; -ONDA4TAB11 PO; +PRED5TAB48 PO; -PROG100C15 PO
[2024-02-08] MEDS ORDERED: LIDOCAINE VISCOUS 2% UD 15 ML UDC ONE (14:32)
[2024-02-08] MEDS ORDERED: FAMOTIDINE/PF INJ 20 MG/2 ML VIAL IV ONE (14:32)
[2024-02-08] MEDS ORDERED: METOCLOPRAMIDE HCL 10 MG/2 ML VIAL ONE ×2 (14:32→16:03)
[2024-02-08] MEDS ORDERED: HYDROMORPHONE 1 MG/1 ML DISP.SYRIN ONE (14:32)
[2024-02-08] MEDS ORDERED: MAG HYDROX/AL HYDROX/SIMETH 30 ML UDC ONE (14:32)
[2024-02-08] MEDS: METOCLOPRAMIDE HCL 10 MG/2 ML VIAL IV ONE ×2 (14:58→16:11)
[2024-02-08] MEDS: MAG HYDROX/AL HYDROX/SIMETH 30 ML UDC PO ONE (14:58)
[2024-02-08] MEDS: LIDOCAINE VISCOUS 2% UD 15 ML UDC MM ONE (14:58)
[2024-02-08] MEDS: IV NS 0.9% 1,000 ML BAG IV ONE (14:58)
[2024-02-08] MEDS: FAMOTIDINE/PF INJ 20 MG/2 ML VIAL IV ONE (14:58)
[2024-02-08] MEDS: HYDROMORPHONE INJ 2 MG/ML DISP.SYRIN IV ONE (14:58)
[2024-02-08 15:11] LABS: BASOPHILS % (AUTO) 0.3 % (0.0-2.0); HEMATOCRIT 42 % (33-45); HEMOGLOBIN 14.2 g/dL (11.5-14.8); LYMPHOCYTES # (AUTO) 1.2 K/uL (0.8-4.8); LYMPHOCYTES % (AUTO) 9.9 % (20.0-44.0); MEAN CORPUSCULAR HEMOGLOBIN 30 PG (26.0-33.0); MEAN CORPUSCULAR HGB CONC 34 g/dl (31.0-36.0); MEAN CORPUSCULAR VOLUME 87 fL (82-100); MONOCYTES # (AUTO) 0.6 K/uL (0.1-1.30); MONOCYTES % (AUTO) 5.2 % (2.0-12.0); NEUTROPHILS # (AUTO) 9.9 K/uL (1.8-8.9); NEUTROPHILS % (AUTO) 84.6 % (43.0-81.0); PLATELET COUNT (AUTO) 236 K/uL (150-450); RED CELL DISTRIBUTION WIDTH 13.1 % (11.5-15.0); WHITE BLOOD COUNT (AUTO) 11.7 K/uL (4.3-11.0)
[2024-02-08 15:22] LABS: CREATININE 0.7 mg/dL (0.6-1.3); POTASSIUM 3.5 mmol/L (3.5-5.1)
[2024-02-08 15:33] LABS: BILIRUBIN,DIRECT 0.2 mg/dL (0.0-0.2); BILIRUBIN,TOTAL 0.9 mg/dL (0.2-1.0); TOTAL PROTEIN, SERUM 8.4 g/dL (6.4-8.2)
[2024-02-08 15:40] LABS: INR 1.02 (0.91-1.10); PROTHROMBIN TIME 10.8 SECS (9.2-11.1)
[2024-02-08] MEDS ORDERED: METO-295 PO (15:58)
[2024-02-08 16:14] VITALS: BP 140/86; TEMP 98.3; O2SAT 100
[2024-02-09] MEDS ORDERED: ONDA4TAB11 PO (11:08)
[2024-02-09] MEDS ORDERED: MAG-55 PO (11:08)
== END 2024-02-08 16:15 | disposition home or self-care (01) ==
LOC: ER 14:17
DX: R10.13 Epigastric pain (principal); R11.2 Nausea with vomiting, unspecified; C16.9 Malignant neoplasm of stomach, unspecified
CPT/HCPCS: 99284; 96374; 96361; 96375 ×2; 96376; 85025; 80048; 83690; 80076; 36415; 85730; 84702; J3490; J2765 ×2; J7030; J1170

== ENCOUNTER 2024-02-09 08:51 | Emergency (ER) | payer OTHER ==
[~2024-02-09] VITALS: Ht 162.6 cm; Wt 76.2 kg
[~2024-02-09 08:51] MED LIST changes: +METO-295 PO
[2024-02-09] MEDS ORDERED: METOCLOPRAMIDE HCL 10 MG/2 ML VIAL ONE (09:21)
[2024-02-09] MEDS ORDERED: HYDROMORPHONE 1 MG/1 ML DISP.SYRIN ONE ×2 (09:21→12:02)
[2024-02-09 09:38] LABS: CALCIUM, SERUM 9.5 mg/dL (8.5-10.1); CREATININE 0.9 mg/dL (0.6-1.3)
[2024-02-09] MEDS: METOCLOPRAMIDE HCL 10 MG/2 ML VIAL IV ONE (09:38)
[2024-02-09 09:39] LABS: BASOPHILS % (AUTO) 0.3 % (0.0-2.0); HEMATOCRIT 45 % (33-45); HEMOGLOBIN 15.2 g/dL (11.5-14.8); LYMPHOCYTES # (AUTO) 1.4 K/uL (0.8-4.8); MEAN CORPUSCULAR HEMOGLOBIN 30 PG (26.0-33.0); MEAN CORPUSCULAR HGB CONC 34 g/dl (31.0-36.0); MEAN CORPUSCULAR VOLUME 88 fL (82-100); MONOCYTES # (AUTO) 0.4 K/uL (0.1-1.30); MONOCYTES % (AUTO) 6.2 % (2.0-12.0); NEUTROPHILS # (AUTO) 5.3 K/uL (1.8-8.9); NEUTROPHILS % (AUTO) 73.5 % (43.0-81.0); PLATELET COUNT (AUTO) 246 K/uL (150-450); RED BLOOD CELL COUNT(AUTO) 5.11 MIL/uL (4.0-5.2); RED CELL DISTRIBUTION WIDTH 13.4 % (11.5-15.0); WHITE BLOOD COUNT (AUTO) 7.2 K/uL (4.3-11.0)
[2024-02-09] MEDS: HYDROMORPHONE 1 MG/1 ML DISP.SYRIN IV ONE ×2 (09:40→12:09)
[2024-02-09 09:49] LABS: ALBUMIN 4.4 g/dL (3.4-5.0); BILIRUBIN,DIRECT 0.2 mg/dL (0.0-0.2); BILIRUBIN,TOTAL 1.1 mg/dL (0.2-1.0); TOTAL PROTEIN, SERUM 8.9 g/dL (6.4-8.2)
[2024-02-09] MEDS ORDERED: HALOPERIDOL LACTATE INJ 5 MG/ML VIAL ONE (10:56)
[2024-02-09] MEDS ORDERED: MAG HYDROX/AL HYDROX/SIMETH 30 ML UDC ONE (10:57)
[2024-02-09] MEDS ORDERED: LIDOCAINE VISCOUS 2% UD 15 ML UDC ONE (10:57)
[2024-02-09] MEDS: HALOPERIDOL LACTATE INJ 5 MG/ML VIAL IV ONE (10:58)
[2024-02-09] MEDS: LIDOCAINE VISCOUS 2% UD 15 ML UDC MM ONE (11:00)
[2024-02-09] MEDS: MAG HYDROX/AL HYDROX/SIMETH 30 ML UDC PO ONE (11:01)
[2024-02-09] MEDS ORDERED: ONDA4TAB11 PO (11:08)
[2024-02-09] MEDS ORDERED: MAG-55 PO (11:08)
[2024-02-09 12:34] VITALS: TEMP 98.2
[2024-02-09 12:35] VITALS: BP 146/93; O2SAT 99
== END 2024-02-09 12:45 | disposition home or self-care (01) ==
LOC: ER 08:51
DX: R10.9 Unspecified abdominal pain (principal); E11.9 Type 2 diabetes mellitus without complications; Z60.2 Problems related to living alone; Z79.899 Other long term (current) drug therapy; Z85.028 Personal history of other malignant neoplasm of stomach
CPT/HCPCS: 99285; 96374; 96375; 96376; 85025; 80048; 83690; 80076; 36415; J1630; J2765; J1170 ×2